=== PATIENT | female | born 1970 | race Caucasian/White ===

== ENCOUNTER 2016-08-02 20:46 | Emergency (ER) | payer BC ==
[~2016-08-02] VITALS: Ht 165.1 cm; Wt 83.3 kg
[~2016-08-02 20:46] MED LIST: ALBUTEROL17 GM IH; ASMANEX HFA13 G1 IH; ATARAX,VISTARIL25 MG PO; ATIVAN0.5 MG PO; ATORVASTATIN CA10 MG PO; BACTRIM,SEPT1 TABLET PO; CLARITIN,ALAVAR10 MG PO; DAILY VALUE1 EACH PO; DELTASONE20 M1 PO; FLEXERIL10 MG PO; FLOVENT 11120 INHALA IH; FLUTICASONE PRO16 GM BOTH NARES; KEFLEX500 MG PO; KENALOG,ARISTOC80 GM TP; LORATADINE10 M2 PO; LORTAB 5-325 M1 EACH PO; MEDROL DOSEPAK4 MG PO; MOBIC7.5 MG PO; MULTIPLE VITAM1 EAC1 PO; NAPROSYN500 MG PO; PERCOCET 10/1 TABLET PO; PRAVASTATIN SOD10 MG PO; TYLENOL EXTRA500 MG PO; ULTRACET1 TABLET PO; ULTRAM50 MG PO; VENTOLIN HFA18 GM IH
[2016-08-02 22:17] LABS: INFLUENZA A VIRAL ANTIGEN NEGATIVE; INFLUENZA B VIRAL ANTIGEN NEGATIVE
[2016-08-02] MEDS ORDERED: VENTOLIN HFA18 GM IH (22:25)
[2016-08-02] MEDS ORDERED: ALBUTEROL2.5 MG/3 M IH (22:25)
[2016-08-02] MEDS ORDERED: ZITHROMAX Z-PA250 MG PO (22:25)
[2016-08-02] MEDS ORDERED: PREDNISONE20 MG PO ×2 (22:25→22:28)
[2016-08-02 23:34] VITALS: BP 175/100
== END 2016-08-02 23:35 | disposition home or self-care (01) ==
LOC: EME 20:46
PROVIDERS: Emergency Medicine
DX: J20.9 Acute bronchitis, unspecified (principal); J45.901 Unspecified asthma with (acute) exacerbation; F17.200 Nicotine dependence, unspecified, uncomplicated
CPT/HCPCS: 71020; 87502; 93005; 94640; 94644; 99281; 99285; J7512

== ENCOUNTER 2016-12-10 00:32 | Emergency (ER) | payer BC ==
[~2016-12-10] VITALS: Ht 165.1 cm; Wt 84.9 kg
[~2016-12-10 00:32] MED LIST changes: +ALBUTEROL2.5 MG/3 M IH; +PREDNISONE20 MG PO; +ZITHROMAX Z-PA250 MG PO
[2016-12-10 01:01] VITALS: BP 131/90
[2016-12-10] MEDS ORDERED: MOTRIN800 MG PO (03:03)
[2016-12-10] MEDS ORDERED: MEDROL DOSEPAK4 MG PO (03:03)
== END 2016-12-10 03:22 | disposition home or self-care (01) ==
LOC: EME 00:32
DX: L55.9 Sunburn, unspecified (principal); R11.10 Vomiting, unspecified; R42 Dizziness and giddiness; J45.909 Unspecified asthma, uncomplicated; Z72.0 Tobacco use
CPT/HCPCS: 99281; 99283; J7512

== ENCOUNTER 2017-06-22 23:14 | Emergency (ER) | payer BC ==
[~2017-06-22] VITALS: Ht 165.1 cm; Wt 87.3 kg
[~2017-06-22 23:14] MED LIST changes: +MOTRIN800 MG PO
[2017-06-23 01:20] LABS: HEMATOCRIT 41.1 % (36.0-46.0); HEMOGLOBIN 14.1 G/DL (11.9-15.5); MCH 32.5 PG (29.0-34.0); MCHC 34.3 G/DL (30.0-36.0); MCV 94.7 FL (83-99); PLATELET COUNT 332 K/uL (156-360); RBC DIS.WIDTH-CV 13.3 % (11.8-14.6); RBC DIS.WIDTH-SD 46.5 % (39-53); RED BLOOD COUNT 4.34 M/uL (3.80-5.20)
[2017-06-23 01:31] LABS: ALBUMIN 4.1 g/dL (3.2-4.8); CHLORIDE 106 mEq/L (99-109); SODIUM 139 mEq/L (136-147)
[2017-06-23 01:33] LABS: GLUCOSE 99 mg/dL (70-99)
[2017-06-23 01:34] LABS: TOTAL PROTEIN 6.5 g/dL (6.4-8.3)
[2017-06-23 01:37] LABS: ALKALINE PHOSPHATASE 71 IU/L (3-129); CREATININE 0.7 mg/dL (0.6-1.3); GFR ESTIMATE (CALCULATED) > 59 mL/min/
[2017-06-23 01:38] LABS: UREA NITROGEN (BUN) 14 mg/dL (9-23)
[2017-06-23 01:39] LABS: AST (GOT) 23 IU/L (2-34)
[2017-06-23 01:40] LABS: ALT (GPT) 16 IU/L (3-49); TOTAL BILIRUBIN 0.3 MG/DL (0.0-1.0)
[2017-06-23 01:56] LABS: MONOSPOT (MONONUCLEOSIS SEROL) NEGATIVE
[2017-06-23] MEDS ORDERED: PREDNISONE20 MG PO (03:04)
[2017-06-23] MEDS ORDERED: AUGMENTIN875 MG PO (03:04)
[2017-06-23 03:22] VITALS: BP 132/72
== END 2017-06-23 03:24 | disposition home or self-care (01) ==
LOC: EXP 23:14 → EME 23:14 → EXP 06-23 03:24
PROVIDERS: Physician Assistant
DX: J20.9 Acute bronchitis, unspecified (principal); J03.90 Acute tonsillitis, unspecified; F17.210 Nicotine dependence, cigarettes, uncomplicated; J45.909 Unspecified asthma, uncomplicated; E78.5 Hyperlipidemia, unspecified; I10 Essential (primary) hypertension; F41.9 Anxiety disorder, unspecified; Z91.040 Latex allergy status; Z88.5 Allergy status to narcotic agent
CPT/HCPCS: 71046; 80053; 85027; 86308; 87651 90; 94640; 94640 76; 99281; 99283; J7512

== ENCOUNTER 2017-09-18 10:58 | Emergency (ER) | payer BC ==
[~2017-09-18] VITALS: Ht 165.1 cm; Wt 79.5 kg
[~2017-09-18 10:58] MED LIST changes: +AUGMENTIN875 MG PO
[2017-09-18 11:34] LABS: HEMATOCRIT 44.9 % (36.0-46.0); HEMOGLOBIN 15.6 G/DL (11.9-15.5); MCH 32.3 PG (29.0-34.0); MCHC 34.7 G/DL (30.0-36.0); PLATELET COUNT 379 K/uL (156-360); RBC DIS.WIDTH-CV 11.9 % (11.8-14.6); RED BLOOD COUNT 4.83 M/uL (3.80-5.20); WHITE BLOOD COUNT 7.7 K/uL (4.1-10.2)
[2017-09-18 11:42] LABS: CHLORIDE 106 mEq/L (99-109); SODIUM 140 mEq/L (136-147)
[2017-09-18 11:44] LABS: GLUCOSE 89 mg/dL (70-99)
[2017-09-18 11:48] LABS: CREATININE 0.7 mg/dL (0.6-1.3); GFR ESTIMATE (CALCULATED) > 59 mL/min/; UREA NITROGEN (BUN) 14 mg/dL (9-23)
[2017-09-18 11:54] LABS: TROP-I INTERPRETATION NEGATIVE; TROPONIN-I < 0.01 ng/mL (0.0-0.30)
[2017-09-18] MEDS ORDERED: MEDROL DOSEPAK4 MG PO (13:05)
[2017-09-18 13:18] VITALS: BP 141/96
== END 2017-09-18 13:19 | disposition home or self-care (01) ==
LOC: EME 10:58
DX: R07.9 Chest pain, unspecified (principal); I10 Essential (primary) hypertension; E78.5 Hyperlipidemia, unspecified; F17.200 Nicotine dependence, unspecified, uncomplicated; J45.909 Unspecified asthma, uncomplicated; F41.9 Anxiety disorder, unspecified; Z91.040 Latex allergy status
CPT/HCPCS: 71046; 80048; 84484; 85027; 93005; 99281; 99284

== ENCOUNTER 2017-10-13 11:32 | Emergency (ER) | payer BC ==
[~2017-10-13] VITALS: Ht 165.1 cm; Wt 84.3 kg
[2017-10-13 12:15] LABS: HEMOGLOBIN 14.3 G/DL (11.9-15.5); MCH 32.6 PG (29.0-34.0); MCHC 34.9 G/DL (30.0-36.0); MCV 93.4 FL (83-99); PLATELET COUNT 319 K/uL (156-360); RBC DIS.WIDTH-CV 13.2 % (11.8-14.6); RBC DIS.WIDTH-SD 45.4 % (39-53); RED BLOOD COUNT 4.39 M/uL (3.80-5.20); WHITE BLOOD COUNT 9.3 K/uL (4.1-10.2)
[2017-10-13 12:38] LABS: TROP-I INTERPRETATION NEGATIVE; TROPONIN-I 0.01 ng/mL (0.0-0.30)
[2017-10-13 12:52] LABS: CHLORIDE 108 MEQ/L (99-109); CREATININE 0.6 MG/DL (0.6-1.3); GFR ESTIMATE (CALCULATED) > 59 mL/min/; GLUCOSE 104 mg/dL (70-99); SODIUM 139 MEQ/L (136-147); UREA NITROGEN (BUN) 11 mg/dL (9-23)
[2017-10-13 15:59] LABS: TROP-I INTERPRETATION NEGATIVE; TROPONIN-I 0.01 ng/mL (0.0-0.30)
[2017-10-13 16:34] VITALS: BP 127/70
== END 2017-10-13 16:34 | disposition home or self-care (01) ==
LOC: EME 11:32
PROVIDERS: Physician Assistant Medical
DX: R07.9 Chest pain, unspecified (principal); J45.909 Unspecified asthma, uncomplicated; E78.5 Hyperlipidemia, unspecified; I10 Essential (primary) hypertension; F41.9 Anxiety disorder, unspecified; G89.29 Other chronic pain; F17.200 Nicotine dependence, unspecified, uncomplicated; Z88.5 Allergy status to narcotic agent; Z91.040 Latex allergy status
CPT/HCPCS: 71046; 80048; 84484; 85027; 93005; 99281; 99284

== ENCOUNTER 2017-11-27 23:08 | Inpatient (IN) | payer BC ==
[~2017-11-27] VITALS: Ht 165.1 cm; Wt 84.7 kg
[~2017-11-27 23:08] MED LIST changes: -PRAVASTATIN SOD10 MG PO; +PRAVASTATIN SOD20 MG PO
[2017-11-27 23:54] LABS: HEMOGLOBIN 13.5 G/DL (11.9-15.5); MCH 33.3 PG (29.0-34.0); MCHC 34.6 G/DL (30.0-36.0); MCV 96.1 FL (83-99); PLATELET COUNT 298 K/uL (156-360); RBC DIS.WIDTH-CV 13.7 % (11.8-14.6); RBC DIS.WIDTH-SD 48.7 % (39-53); RED BLOOD COUNT 4.06 M/uL (3.80-5.20); WHITE BLOOD COUNT 18.1 K/uL (4.1-10.2)
[2017-11-28 00:07] LABS: CHLORIDE 103 mEq/L (99-109); POTASSIUM 3.8 mEq/L (3.7-5.4)
[2017-11-28 00:08] LABS: SODIUM 137 mEq/L (136-147)
[2017-11-28 00:09] LABS: GLUCOSE 117 mg/dL (70-99)
[2017-11-28 00:13] LABS: CREATININE 0.8 mg/dL (0.6-1.3); GFR ESTIMATE (CALCULATED) > 59 mL/min/
[2017-11-28 00:14] LABS: UREA NITROGEN (BUN) 19 mg/dL (9-23)
[2017-11-28 02:31] LABS: TROP-I INTERPRETATION NEGATIVE; TROPONIN-I < 0.01 ng/mL (0.0-0.30)
[2017-11-28 06:23] VITALS: BP 140/83
[2017-11-28 07:00] VITALS: BP 132/82
[2017-11-28 07:11] LABS: ABS NEUTROPHIL COUNT 14.9; ANISOCYTOSIS 1+; ATYPICAL LYMPHOCYTE 0.9 %; BAND NEUTROPHILS 1.8 % (0-8.0); EOSINOPHIL ABS CT 0; LYMPHOCYTES 5.4 % (15.0-45.0); METAMYELOCYTES 0.9 %; MONOCYTES 10.7 % (0-9.0); PLAT.SUFFICIENCY ADEQUATE; POIKILOCYTOSIS 1+; SEG.NEUTROPHILS 80.3 % (46.0-76.0); SPHEROCYTES 1+
[2017-11-28] MEDS ORDERED: LISINOPRIL5 MG PO (10:11)
[2017-11-28] MEDS ORDERED: PERCOCET 10/1 TABLET PO (10:11)
[2017-11-28] MEDS ORDERED: WELLBUTRIN SR150 MG PO (10:11)
[2017-11-28] MEDS ORDERED: DUPIXENT300 MG/2 M SC (10:12)
[2017-11-28] MEDS ORDERED: PREDNISONE20 MG PO (10:13)
[2017-11-28] MEDS ORDERED: NICOTINE PATCH1 EAC2 TD (10:14)
[2017-11-28 15:20] VITALS: BP 135/95
[2017-11-28 20:37] VITALS: BP 102/58
[2017-11-28 23:54] VITALS: BP 156/85
[2017-11-29 06:19] LABS: BASOPHIL (%) 0.2 % (0-1); EOSINOPHIL (%) 0 % (0-5); HEMATOCRIT 39.4 % (36.0-46.0); HEMOGLOBIN 13.4 G/DL (11.9-15.5); IMMATURE GRANULOCYTE (%) 1.8 % (0.0-0.7); LYMPHOCYTE COUNT 0.8 K/uL (1.0-2.8); MCH 32.8 PG (29.0-34.0); MCV 96.3 FL (83-99); MONOCYTE COUNT 1.3 K/uL (0-0.8); NEUTROPHIL COUNT 22.5 K/uL (1.8-6.4); PLATELET COUNT 299 K/uL (156-360); RBC DIS.WIDTH-CV 13.9 % (11.8-14.6); RBC DIS.WIDTH-SD 49.8 % (39-53); RED BLOOD COUNT 4.09 M/uL (3.80-5.20)
[2017-11-29 06:39] LABS: CHLORIDE 109 MEQ/L (99-109); CREATININE 0.5 MG/DL (0.6-1.3); GFR ESTIMATE (CALCULATED) > 59 mL/min/; GLUCOSE 170 mg/dL (70-99); POTASSIUM 4.3 MEQ/L (3.7-5.4); SODIUM 140 MEQ/L (136-147); UREA NITROGEN (BUN) 11 mg/dL (9-23)
[2017-11-29 07:37] VITALS: BP 153/98
[2017-11-29 16:33] VITALS: BP 148/76
[2017-11-29 20:45] VITALS: BP 165/85
[2017-11-29 23:35] VITALS: BP 132/81
[2017-11-30 05:59] LABS: BASOPHIL (%) 0.2 % (0-1); BASOPHIL COUNT 0.1 K/uL (0-0.1); EOSINOPHIL (%) 0 % (0-5); HEMATOCRIT 38.1 % (36.0-46.0); HEMOGLOBIN 12.9 G/DL (11.9-15.5); IMMATURE GRANULOCYTE (%) 2.7 % (0.0-0.7); LYMPHOCYTE (%) 3.5 % (15-42); LYMPHOCYTE COUNT 0.8 K/uL (1.0-2.8); MCH 32.7 PG (29.0-34.0); MCHC 33.9 G/DL (30.0-36.0); MCV 96.7 FL (83-99); MONOCYTE (%) 4.8 % (3-12); MONOCYTE COUNT 1.2 K/uL (0-0.8); NEUTROPHIL (%) 88.8 % (45-76); NEUTROPHIL COUNT 21.4 K/uL (1.8-6.4); PLATELET COUNT 306 K/uL (156-360); RBC DIS.WIDTH-CV 14.2 % (11.8-14.6); RBC DIS.WIDTH-SD 50.4 % (39-53); RED BLOOD COUNT 3.94 M/uL (3.80-5.20); WHITE BLOOD COUNT 24.1 K/uL (4.1-10.2)
[2017-11-30 06:23] LABS: CHLORIDE 106 MEQ/L (99-109); CREATININE 0.5 MG/DL (0.6-1.3); GFR ESTIMATE (CALCULATED) > 59 mL/min/; GLUCOSE 152 mg/dL (70-99); POTASSIUM 4.3 MEQ/L (3.7-5.4); SODIUM 140 MEQ/L (136-147); UREA NITROGEN (BUN) 12 mg/dL (9-23)
[2017-11-30 07:25] VITALS: BP 146/84
[2017-11-30 16:06] VITALS: BP 154/94
[2017-12-01 00:46] VITALS: BP 146/85
[2017-12-01 06:45] VITALS: BP 160/90
[2017-12-01 15:50] VITALS: BP 149/85
[2017-12-01 20:48] VITALS: BP 148/86
[2017-12-01] MEDS ORDERED: LISINOPRIL5 MG PO (20:57)
[2017-12-01] MEDS ORDERED: PREDNISONE10 M1 PO (20:59)
[2017-12-02 02:04] VITALS: BP 140/73
[2017-12-02 07:24] VITALS: BP 130/67
[2017-12-02 16:07] VITALS: BP 126/85
== END 2017-12-02 18:40 | disposition home or self-care (01) | DRG 190 ==
LOC: EME 23:08 → EDOF 11-28 05:16 → 5EAST 11-28 05:16 → CANRESERV 11-28 05:33 → ENRESERV 11-28 05:33 → 5EAST 11-28 06:20
PROVIDERS: Family Medicine Sports Medicine
DX: J44.0 Chronic obstructive pulmonary disease with (acute) lower respiratory infection (principal); J18.9 Pneumonia, unspecified organism; J44.1 Chronic obstructive pulmonary disease with (acute) exacerbation; R09.02 Hypoxemia; G89.29 Other chronic pain; F41.1 Generalized anxiety disorder; F17.200 Nicotine dependence, unspecified, uncomplicated; E78.5 Hyperlipidemia, unspecified; I10 Essential (primary) hypertension; F32.9 Major depressive disorder, single episode, unspecified; Z71.6 Tobacco abuse counseling
CPT/HCPCS: 71046; 80048; 83735; 84484; 85007; 85025; 85027; 93005; 94640; 94640 76; 99202; 99281; 99285; J0456; J0696; J1650; J2930; J3475; J7030; J7512